=== PATIENT | male | born 1990 | race Caucasian/White ===

== ENCOUNTER 2017-05-13 09:09 | Emergency (ER) | payer OTHER ==
[~2017-05-13] VITALS: Ht 172.7 cm; Wt 64.9 kg
[2017-05-13 09:10] VITALS: BP_SYST 122
--- NOTE | 2017-05-13 09:12 | NUR ---
Arrived via [facility] after having carpal spasms which made it impossible for him to drive. Patient states he has had anxiety attacks in the past, but nothing like this. States that he has taken Xanax for anxiety in the past but found the side effects to be worse than the anxiety. Patient to ER bed 2 to [facility]ow for evaluation. Side rails up. Report given to Mike MACK.
--- NOTE | 2017-05-13 09:28 | NUR ---
Pt presents to ED c/o anxiety while driving.Pt AAOx4 no significant med hx.
--- NOTE | 2017-05-13 09:30 | NUR ---
ER at bedside examining patient.
[2017-05-13] MEDS ORDERED: LORazepam 1 MG TABLET PO ONE (09:45)
--- NOTE | 2017-05-13 10:09 | NUR ---
Pt medicated tolerated well. Monitoring for improvement.
--- NOTE | 2017-05-13 11:30 | NUR ---
PT CALM NO ACUTE DISTRESS NOTED. AWAITING LAB RESULT [facility] DISPO.
[2017-05-13 12:06] LABS: BASOPHILS % (AUTO) 0.4 % (0.0-2.0); EOSINOPHILS % (AUTO) 0.3 % (0.0-4.0); HEMATOCRIT 45.3 % (36-54); HEMOGLOBIN 15.1 g/dL (14.0-18.0); LYMPHOCYTES # (AUTO) 1.3 K/uL (1.0-5.5); LYMPHOCYTES % (AUTO) 13.8 % (20.5-51.5); MEAN CORPUSCULAR HEMOGLOBIN 31 pg (27-31); MEAN CORPUSCULAR HGB CONC 33 % (32-36); MEAN CORPUSCULAR VOLUME 91 fL (79.0-98.0); MONOCYTES # (AUTO) 0.8 K/uL (0.0-1.0); MONOCYTES % (AUTO) 7.9 % (1.7-9.3); NEUTROPHILS # (AUTO) 7.5 K/uL (1.8-7.7); NEUTROPHILS % (AUTO) 77.6 % (40.0-70.0); PLATELET COUNT (AUTO) 267 K/uL (130-430); RED BLOOD CELL COUNT(AUTO) 4.96 MIL/uL (4.2-6.2); RED CELL DISTRIBUTION WIDTH 12.3 % (9.0-15.0); WHITE BLOOD COUNT (AUTO) 9.6 K/uL (4.8-10.8)
[2017-05-13 12:12] LABS: CALCIUM 9.1 mg/dL (8.4-11.0); CREATININE 0.91 mg/dL (0.55-1.30); POTASSIUM 3.5 mmol/L (3.5-5.1)
[2017-05-13 12:16] LABS: ALBUMIN 4.2 g/dL (3.4-4.8); PHOSPHORUS 3.6 mg/dL (2.7-4.5); TOTAL BILIRUBIN 0.7 mg/dL (0.0-1.0)
[2017-05-13 12:50] VITALS: BP_SYST 129
--- NOTE | 2017-05-13 12:50 | NUR ---
Patient given written and verbal discharge instructions and verbalizes understanding. ER MD discussed with patient the results and treatment provided. Patient in stable condition. ID arm band removed. Rx of ATIVAN given. Patient educated on pain management and to follow up with PMD. Pain Scale 0. Opportunity for questions provided and answered.
== END 2017-05-13 12:50 | disposition home or self-care (01) ==
LOC: SED 09:09
DX: F41.0 Panic disorder [episodic paroxysmal anxiety] (principal); F41.1 Generalized anxiety disorder
CPT/HCPCS: 36415; 80053; 83735-TC; 84100-TC; 85025; 99284